=== PATIENT | female | born 1935 | race Caucasian/White ===

== ENCOUNTER → 2017-11-13 13:02 | Outpatient (CLI) | payer MEDICARE, BC ==
[2014-09-07 15:09] VITALS: BMI 31.9
--- NOTE | ~2017-11-13 | EC ---
PATIENT:MAEVE STOVER DATE OF SERVICE: 11/13/17 SEX: F MEDICAL RECORD: [id number] DATE OF : 37 [facility] AGE OF PATIENT: 82 ADMISSION DATE: 11/13/17 REFERRING PHYSICIAN: INTERPRETING PHYSICIAN: MUNIR TAMAYO MD ECHOCARDIOGRAM REPORT ECHO CHARGES CLINICAL DIAGNOSIS: ECHOCARDIOGRAPHIC MEASUREMENTS (adult normal given) AC root (d.<3.7cm) cm LV Septum d (<1.2 cm> cm Valve Excursion cm LV Septum (systole) cm Left Atria (s.<4.0cm> cm LVPW d(<1.2cm) cm RV (d.<2.3cm) cm LVPW (sytole) cm LV diastole(<5.6CM) cm MV E-F(>70mm/sec) cm LV systole cm LVOT Diameter cm MV exc.(>10mm) cm Est.ejection fraction (50-75%) % Pericardial Effusion DOPPLER: LVIT cm/sec A cm/sec E cm/sec LA cm/sec RVSP mmHg LVOT cm/sec AOP1/2T m/s Asc. Ao cm/sec RVOT cm/sec RA cm/sec PA cm/sec AV Gradient Peak mmHg AV Mean mmHg AV Area cm MV Gradient Peak mmHg MV Mean mmHg MV Area cm COMMENTS: Bean Weigher: Upper Stitcher: CORI DATE OF SERVICE: 11/13/2017 PROCEDURE: Transthoracic echocardiogram. FINDINGS: 1. Left ventricle has normal function, ejection fraction is 60%. 2. The right ventricle is normal size, normal structure, and normal function. 3. The left atrium is normal size and normal structure, and normal function. 4. The aortic valve is shown to have mild aortic regurgitation, but otherwise structurally normal. ECHOCARDIOGRAM REPORT [id number] MAEVE STOVER 5. The mitral valve is shown to have mild to moderate mitral regurgitation, appears to be posteriorly directed, mildly eccentric. 6. The tricuspid valve has mild tricuspid regurgitation, RVSP of 35-40 mmHg. 7. The right atrium is mildly dilated. 8. Pulmonic valve is normal. CONCLUSIONS: The patient has evidence of hypertensive heart disease, diastolic dysfunction with mild elevations of pulmonary pressures. TRANSINT:[id number] Voice Confirmation ID: [id number] DOCUMENT ID: [id number] 11/19/2017 Edited to correct date of service, dmm. MUNIR TAMAYO MD at 1001 CC: [id number] DICTATION DATE: 11/14/17 0754 AUTO MECHANIC APPRENTICE: 11/14/17 0955 DEP CLI 11/13/17 [id number] [place] [address]
[~2017-11-13 13:02] MED LIST: BAYER CHEWABLE81 MG PO; BYSTOLIC2.5 MG PO; BYSTOLIC5 MG PO; CELEBREX200 MG PO; CYCLOBENZAPRINE10 MG; CYMBALTA30 MG PO; HYDROCODON-ACE1 EAC7 PO; LEVOXYL100 MCG PO; LEXAPRO10 MG PO; LYRICA75 MG PO; METOPROLOL TART50 MG PO; NEXIUM40 MG PO; NORVASC5 MG PO; PLAVIX75 MG PO; PRILOSEC10 MG PO; TYLENOL ARTHRITIS PO; ULTRAM50 MG PO
== END | disposition home or self-care (01) ==
LOC: D.ECHO 13:02
DX: R07.9 Chest pain, unspecified (principal); R06.02 Shortness of breath; R00.2 Palpitations; I10 Essential (primary) hypertension; R09.89 Other specified symptoms and signs involving the circulatory and respiratory systems

== ENCOUNTER 2017-12-04 08:01 | Outpatient (CLI) | payer MEDICARE, BC ==
[~2017-12-04] VITALS: Ht 160 cm; Wt 81.8 kg
--- NOTE | ~2017-12-04 | OP ---
PATIENT NAME: MAEVE STOVER MEDICAL RECORD: [id number] :37 LOCATION:[facility] ADMISSION DATE: SURGEON: MUNIR TAMAYO MD DATE OF OPERATION: 12/04/2017 PROCEDURE: Left heart cath, LV gram, coronary angiogram, selective 4-vessel angiography. PROCEDURE IN DETAIL: The patient was brought to cardiac catheterization lab in stable condition. Both groins were sterilely prepped and draped. The patient had a 5-[place] sheath placed in the right common femoral artery using modified Seldinger technique. The patient then had diagnostic catheter utilized to selectively engage the left main coronary artery, the right coronary artery, the left ventricular cavity, the right subclavian artery, the right innominate artery, the right common carotid artery, the left common carotid artery, and the left subclavian vessel selectively for complete left heart catheterization and a 4-vessel angiography. FINDINGS: 1. Left main, mild plaquing. 2. The LAD is shown to be widely patent proximally. There is a large diagonal and the diagonal itself has a mid 50% stenosis. 3. The mid left anterior descending has a 50% stenosis. 4. The ramus intermediate branch is a very small vessel, less than 1.0 mm diameter and it is shown to have a 90% stenosis. 5. The circumflex is a nondominant vessel with a large branching first obtuse marginal branch with a 40% mid stenosis. 6. The right coronary artery is a large, dominant vessel with diffuse atherosclerotic changes throughout the vessel with a mid 50% stenosis. 7. The innominate artery is shown to be a large vessel and normal. 8. The right subclavian vessel is serpiginous with mild plaquing, but no hemodynamically significant stenosis. 9. The right vertebral artery is widely patent and antegrade flow, very serpiginous in its course. 10. The right common carotid artery is normal, very serpiginous in its course to the bifurcation of the external and internal carotid artery. 11. The right internal carotid artery makes a 360 degree loop. Throughout that loop, it appears that there is plaquing, but no severe stenosis into the cavernous portion of the right internal carotid artery. 12. The left common carotid artery is also very serpiginous in its course reflective of the loss of cervical height in the neck. 13. In the proximal left internal carotid artery, there is significant stenosis approximately 90%. 14. Left subclavian vessel has mild atherosclerotic plaquing and 35% stenosis proximally. The left vertebral artery has antegrade flow. Very small vessel. HEMODYNAMICS: Left ventricular ejection fraction is 65%, end-diastolic pressure was mildly elevated at 25 mmHg. There is no significant mitral regurgitation. There is no gradient across the aortic valve. IMPRESSION: 1. Moderate multivessel coronary artery disease with the most significant being in the ramus vessel that is very small. We will treat that medically. 2. Preserved left ventricular systolic function. 3. 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 OPERATIVE REPORT [id number] MAEVE STOVER RECOMMENDATION: Given that the stenosis in 90% range or greater, would recommend that she go forward with carotid endarterectomy. Would continue aggressive secondary risk factor modification and dual antiplatelet therapy. TRANSINT:[id number] Voice Confirmation ID: [id number] DOCUMENT ID: [id number] MUNIR TAMAYO MD at 1426 CC: [id number] DICTATION DATE: 12/04/17 1049 BUNDLE CLERK: 12/04/17 1152 DEP CLI 12/04/17 [facility] [address] [place] [address]
--- NOTE | ~2017-12-04 | HEMODYNAMI ---
PATIENT:MAEVE STOVER MEDICAL RECORD: [id number] : 37 LOCATION:[facility] ADMISSION DATE: 12/04/17 Generatedon:12/04/201710:46 Patient name: MAEVE STOVER Patient #: [id number] SSN: : 1935 Date of study: 12/04/2017 Page: Of Hemodynamic Procedure Report Patient Data Patient Demographics Procedure consent was obtained First Name: MAEVE Gender: Female Last Name: CK : 1935 [facility] Initial: HAL Age: 82 year(s) Patient #: [id number] Race: Unknown Additional ID: [id number] Contact details Address: [address] [place] [address] street State: [place] City: [place] Zip code: [address] Past Medical History Allergies Allergen Reaction Date Comments Reported Other allergy 12/04/2017 CRESTOR, SULFA, ZOCOR Admission Admission Data Admission Date: 12/04/2017 Admission Time: 8:01 Lab Results Lab Result Date: 12/04/2017 Lab Result Time: 0:00 Biochemistry Name Units Result Min Max BUN mg/dl 20 --(----)*- 7 18 Creatinine mg/dl 1.1 --(--*-)-- 0.6 1.3 CBC Name Units Result Min Max Hemoglobin g/dl 12.2 *-(----)-- 13.5 17.5 Procedure Procedure Types Cath Procedure Diagnostic Procedure [facility] w/Coronaries Sedation Charges Moderate Sedation up to 15 minutes Peripheral Cath Diagnostic Procedure Cath Peripheral Four Vessel Arteriogram Procedure Description Procedure Date Procedure Date: 12/04/2017 Procedure Start Time: 10:17 Procedure End Time: 10:45 Procedure Staff Name Function Bon Umaña MD Performing Physician Ishaan Dubose RN Nurse Yoselyn Corral RT Monitor Aroldo Tapia RT Scrub Procedure Data Cath Procedure Fluoroscopy Diagnostic fluoroscopy Total fluoroscopy Time: 5.8 time: 5.8 min min Diagnostic fluoroscopy Total fluoroscopy dose: 214 dose: 214 mGy mGy Contrast Material Contrast Material Type Amount (ml) Isovue 300 145 Entry Location Entry Primary Successful Side Size Upsize Upsize Entry Closure Succes sful Closure Location (Fr) 1 (Fr) 2 (Fr) Remarks Device Remarks Femoral Right 5 Fr Exoseal artery Estimated blood loss: 5 ml Diagnostic catheters Device Type Used For End Catheter Placement MULTIPACK JL 4.0 5Fr Procedure catheter MULTIPACK 3DRC 5Fr Procedure catheter DIAGNOSTIC AR MOD 5Fr Procedure Catheter ([id number]) MULTIPACK Pigtail 5 Fr Procedure catheter Procedure Complications No complications Procedure Medications Medication Administration Route Dosage Oxygen NC 2 l/min Lidocaine 2% added to field 20 Heparin Flush Bag added to field 2 bags (1000units/500ml NS) 0.9% NaCl I.V. 100 ml/hr Versed I.V. 1 mg Fentanyl I.V. 50 mcg Hemodynamics Rest HGB: 12.2 (g/dl) Heart Rate: 65 (bpm) Pressure Samples Time Site Value (mmHg) Purpose Heart Use Rate(bpm) 10:36 LV 150/-6,15 EDP 74 10:37 AO 136/76(97) Pullback 74 10:37 LV 134/17,19 Pullback 74 Gradients Valve Time Site 1 Site 2 Mean SEP/DFP Peak To Heart Use (mmHg) (sec/min) Peak Rate (mmHg) (bpm) Aortic 10:37 LV AO 0 19 0 74 134/17,19 136/76(97) Calculations Valve P-P Mean Valve Index Valve Source Name Gradient Area Flow (cm2) Aortic 0 0 0 0 Snapshots Pre Cath Intra NCS Post Cath Vital Signs Time Heart Resp SPO2 etCO2 NIBP (mmHg) Rhythm Pain Sedation Rate (ipm) (%) (mmHg) Status Level (bpm) 10:07:30 64 12 99 41.2 159/90(113) NSR 0 (11) 10(A) , No pain 10:12:00 68 15 99 17.9 145/84(114) NSR 0 (11) 10(A) , No pain 10:16:34 64 16 96 0 135/88(111) NSR 0 (11) 9(A) , No pain 10:20:52 66 16 96 0 139/88(108) NSR 0 (11) 9(A) , No pain 10:25:12 71 15 97 7.4 144/84(120) NSR 0 (11) 9(A) , No pain 10:29:33 75 15 97 37.4 143/80(113) NSR 0 (11) 9(A) , No pain 10:33:51 73 15 97 31.4 145/88(113) NSR 0 (11) 9(A) , No pain 10:38:13 75 15 98 34.4 144/82(106) NSR 0 (11) 10(A) , No pain 10:42:37 68 12 99 40.4 147/82(117) NSR 0 (11) 10(A) , No pain Medications Time Medication Route Dose Verified Delivered Reason Notes Effe ctiveness by by 10:06:20 Oxygen NC 2 Bon Buffie used for l/min Chasidy Dubose RN procedure 10:06:27 Lidocaine 2% added 20ml Bon Bon used for to vial Chasidy Umaña MD procedure field LEIVA 10:06:35 Heparin Flush added 2 Bon Bon for local Bag to bags Chasidy Umaña MD anesthetic (1000units/500ml field LEIVA NS) 10:06:46 0.9% NaCl I.V. 100 Bon Buffie Per ml/hr Chasidy Dubose RN physician 10:10:22 Versed I.V. 1 mg Bon Buffie for Chasidy Dubose RN sedation 10:10:32 Fentanyl I.V. 50 Bon Buffie for mcg Chasidy Dubose RN sedation Procedure Log Time Note 9:35:53 Ishaan Dubose RN sent for patient. Start room use. 9:47:01 Time tracking: Regular hours 9:47:04 Plan of Care:Hemodynamics will remain stable., Cardiac rhythm will remain stable., Comfort level will be maintained., Respiratory function will remain adequate., Patient/ family verbilizes understanding of procedure., Procedure tolerated without complication., Recovers from procedure without complications.. 9:49:21 Signed procedure consent form obtained from patient. 9:51:21 H&P Date Dictated: 11/28/2017 Within 30 days and on chart., H&P Addendum completed by physician on day of procedure. (MUST COMPLETE FOR ALL OUTPATIENTS). 9:51:53 Patient allergic to Other allergyCRESTOR, SULFA, ZOCOR 9:53:26 Lab Result : BUN 20 mg/dl 9:53:26 Lab Result : Creatinine 1.1 mg/dl 9:53:26 Lab Result : Hemoglobin 12.2 g/dl 9:56:49 Patient received from Pre/Post Procedure Room to CCL 3 Alert and oriented. Tansferred to table in Supine position. 9:56:50 Warm blankets applied, and gonzalez hugger turned on for patient comfort. 9:56:50 Correct patient and procedure confirmed by team. 9:56:52 Signed procedure consent form obtained from patient. 9:56:53 ECG and BP/O2 sat monitors applied to patient. 10:06:07 Vital chart was started 10:06:08 Baseline sample Acquired. 10:06:12 Rhythm: sinus rhythm 10:06:13 Full Disclosure recording started 10:06:14 Pre-procedure instructions explained to patient. 10:06:14 Pre-op teaching completed and patient verbalized understanding. 10:06:16 Family in patients room. 10:06:17 Patient NPO since Midnight. 10:06:19 Is the patient allergic to Iodine/contrast media? No. 10:06:20 Oxygen 2 l/min NC was administered by Ishaan Dubose RN; used for procedure; 10:06:21 Is patient on blood thinner?Yes 10:06:24 ACC The patient was administered the following blood thiners within the last 24 hours: ACCPlavix 10:06:26 Patient diabetic? No. 10:06:27 Lidocaine 2% 20ml vial added to field was administered by Bon Umaña MD; used for procedure; 10:06:28 Patient not . Patient is over age 55. 10:06:31 Previous problem with sedation/anesthesia? No ? 10:06:32 Snore? Yes 10:06:35 Heparin Flush Bag (1000units/500ml NS) 2 bags added to field was administered by Bon Umaña MD; for local anesthetic; 10:06:35 Sleep apnea? No 10:06:36 Deviated septum? No 10:06:37 Opens mouth fully? Yes 10:06:37 Sticks out tongue? Yes 10:06:40 Airway obstruction? No ? 10:06:44 Dentures? Yes IN TIGHT 10:06:46 0.9% NaCl 100 ml/hr I.V. was administered by Ishaan Dubose RN; Per physician; 10:06:48 Pre procedure: right dorsailis pedis pulse 2+ Normal; easily identifiable; not easily obliterated 10:07:06 IV patent on arrival in right forearm with 0.9% NaCl at [facility]. 10:07:08 Lab results completed and on chart. 10:07:12 Right groin area was prepped with chlora-prep and draped in sterile fashion 10:07: Alarms reviewed by R. N. 10:: Sharps counted by scrub and verified by R.N. 10::15 --------ALL STOP TIME OUT------ ::15 Final Timeout: patient, procedure, and site verified with staff and physician. All members of the team are in agreement. 10:07:17 Right groin site verified by team. 10:07:20 Physical assessment completed. ASA score P 2 - A patient with mild systemic disease as per Bon Umaña MD. 10:07:23 Sedation plan: IV Moderate Sedation Medication:Versed, Fentanyl 10:10:22 Versed 1 mg I.V. was administered by Ishaan Dubose RN; for sedation; 10:10:32 Fentanyl 50 mcg I.V. was administered by Ishaan Dubose RN; for sedation; 10:13:13 Use device set Femoral Dx 10:13:14 ACIST Syringe (42933) opened to sterile field. 10:13:15 Bag Decanter (2002S) opened to sterile field. 10:13:16 ACIST Hand Control (19810) opened to sterile field. 10:13:17 ACIST Manifold (09785) opened to sterile field. 10:13:19 Tegaderm 4 x 4 (1626W) opened to sterile field. 10:13:20 Medline Cath Pack ([id number]) opened to sterile field. 10:13:21 SHEATH 5FR Doon (IQZ104) opened to sterile field. 10:13:23 DIAGNOSTIC WIRE .035 260cm J wire (341634) opened to sterile field. 10:13:26 DIAGNOSTIC Multipack 5Fr catheter set ([id number]) opened to sterile field. 10:13:27 MICROPUNCTURE 4FR Cook (X95392) opened to sterile field. 10:17:12 Zero performed for pressure channel P1 10:17:18 Procedure started. 10:17:21 Local anesthetic to right femoral artery with Lidocaine 2% by Bon Umaña MD.INITIAL ACCESS ONLY 10:17:22 Access obtained with 4Fr micropunture. 10:17:30 A 5 Fr sheath was inserted into the Right Femoral artery 10:17:40 Zero performed for pressure channel P1 10:19:17 A MULTIPACK JL 4.0 5Fr catheter was advanced over the wire and used for Procedure. 10:20:51 LCA angiography performed. 10:22:13 Catheter exchanged over wire. 10:22:25 A MULTIPACK 3DRC 5Fr catheter was advanced over the wire and used for Procedure. 10:25:24 Right carotid angiography performed. 10:28:38 Left carotid angiography performed. 10:30:55 Catheter exchanged over wire. 10:31:58 A DIAGNOSTIC AR MOD 5Fr Catheter ([id number]) was advanced over the wire and used for Procedure. 10:33:39 RCA angiography performed. 10:34:22 Catheter exchanged over wire. 10:34:41 A MULTIPACK Pigtail 5 Fr catheter was advanced over the wire and used for Procedure. 10:34:58 Injector settings: Ml/sec: 12, Volume: 8, 10:35:01 LV gram done using LIRIANO 10:36:35 LV hemodynamics recorded. 10:37:08 EF : 65 % 10:37:10 Catheter removed. 10:37:14 EXOSEAL 5Fr (EX500) opened to sterile field. 10:37:33 Sheath removed intact; hemostasis achieved with Exoseal to the Right Femoral artery. 10:37:59 Procedure ended.(Physican Out) 10:38:08 Fluoroscopy time 05.80 minutes. 10:38:12 Fluoroscopy dose: 214 mGy 10:38:12 Flurop Dose total: 214 10:38:17 Contrast amount:Isovue 300 145ml. 10:38:20 Sharps counted by scrub and verified by R.N. 10:38:28 Post-op/insertion site Right Femoral artery dressed using a 4 x 4 and Tegaderm. 10:38:33 Post procedure: right dorsailis pedis pulse 2+ Normal; easily identifiable; not easily obliterated. 10:38:36 Post-procedure physical assessment completed. ASA score P 2 - A patient with mild systemic disease as per Bon Umaña MD. 10:38:41 Post procedure rhythm: unchanged. 10:38:44 Estimated blood loss: 5 ml 10:38:46 Post procedure instruction explained to patient.Patient verbalizes understanding. 10:38:47 Patient needs reinforcement of post procedure teaching. 10:44:14 Procedure type changed to Cath procedure, Diagnostic procedure, LHC, LHC w/Coronaries, Sedation Charges, Moderate Sedation up to 15 minutes, Peripheral Cath Diagnostic Procedure, Cath Peripheral, Four Vessel Arteriogram 10:45:08 Procedure and supply charges have been captured, reviewed, submitted and are correct. 10:45:11 Procedure Complication : No complications 10:45:13 Vital chart was stopped 10:45:13 See physician's report for complete and final results. 10:45:15 Report given to Pre/Post Procedure Room. 10:45:18 Patient transfered to Pre/Post Procedure Room with Bed. 10:45:20 Procedure ended. 10:45:20 Full Disclosure recording stopped 10:45:26 End room use (Document Last) Device Usage Item Name Manufacture Quantity Catalog Hospital Part Current Minimal Lot# / Number Charge Number Stock Stock Serial# Code ACIST Syringe Acist 1 29666 269550 486069 [id number] 20 (69547) Medical Systems Inc Bag Decanter Microtek 1 2002S 412974 99425 215418 5 (2002S) Medical Inc. ACIST Hand Acist 1 29123 172655 886259 716266 5 Control Medical (91573) Systems Inc ACIST Acist 1 90069 191957 605349 596287 5 Manifold Medical (24661) Systems Inc Tegaderm 4 x 3M 1 1626W 787890 313829 817947 5 4 (1626W) Medline Cath Cardinal 1 [id number] 467342 71327 075618 5 [facility] ([id number]) SHEATH 5FR Terumo 1 FDL098 534573 819078 279908 40 Doon (YKE238) DIAGNOSTIC St Varun 1 408988 366067 080029 006958 30 WIRE .035 260cm J wire (084577) DIAGNOSTIC Cardinal 1 [id number] 086396 11721 076555 30 Multipack 5Fr Health catheter set (FH5285) MICROPUNCTURE [employer] Medical 1 X06993 282302 909240 888825 5 4FR [employer] ([id number]) MULTIPACK JL Cardinal 1 202558 5 4.0 5Fr Health catheter MULTIPACK Cardinal 1 918002 5 3DRC 5Fr Health catheter DIAGNOSTIC AR Cardinal 1 [id number] 547678 869805 761414 15 MOD 5Fr Health Catheter (217133O) MULTIPACK Cardinal 1 441805 5 Pigtail 5 Fr Health catheter EXOSEAL 5Fr Cardinal 1 EX500 718676 023415 746087 10 (EX500) Health Signature Audit [place] Stage Time Signature Unsigned Intra-Procedure 12/04/2017 Yoselyn Corral 10:46:24 AM RT(R) Signatures Monitor : Yoselyn Corral Signature : RT Date : Time : [address] [address]
[~2017-12-04 08:01] MED LIST changes: -HYDROCODON-ACE1 EAC7 PO; -LEXAPRO10 MG PO; -LYRICA75 MG PO; -METOPROLOL TART50 MG PO; -NEXIUM40 MG PO; -NORVASC5 MG PO; -PLAVIX75 MG PO
[2017-12-04] MEDS ORDERED: METOPROLOL TART50 MG PO (08:15)
[2017-12-04] MEDS ORDERED: NEXIUM40 MG PO (08:16)
[2017-12-04] MEDS ORDERED: LEXAPRO10 MG PO (08:17)
[2017-12-04] MEDS ORDERED: LYRICA75 MG PO (08:17)
[2017-12-04 08:29] VITALS: BP 138/92; Ht 160 cm; Wt 81.8 kg
[2017-12-04 08:45] LABS: BASOPHILS 0.2 % (0-2); HEMATOCRIT 37.7 % (36.0-48.0); HEMOGLOBIN 12.2 g/dL (12-16); IMMATURE GRANULOCYTES 0.6 % (0-5); LYMPHOCYTES 39.3 % (15-50); MCH 30.1 pg (26.0-34.0); MCHC 32.4 g/dL (31.0-37.0); MCV 93.1 fL (80.0-100.0); MEAN PLATELET VOLUME 9.5 fL (7.4-10.4); MONOCYTES 9.2 % (2-11); NEUTROPHILS 49.7 % (40-80); PLATELET COUNT 247 10x3/uL (130-400); RBC 4.05 10x6/uL (4.00-5.40); RDW 14.6 % (11.5-14.5); WBC 4.9 10x3/uL (4.8-10.8)
[2017-12-04 08:57] LABS: ANION GAP 8.8 mmol/L (8-16); CALCIUM 8.9 mg/dL (8.5-10.1); CARBON DIOXIDE 29.1 mmol/L (21.0-32.0); CREATININE - SERUM 1.1 mg/dL (0.6-1.3); POTASSIUM - SERUM 3.9 mmol/L (3.5-5.1)
== END 2017-12-04 13:20 | disposition home or self-care (01) ==
LOC: D.CATH 08:01
PROVIDERS: Internal Medicine Cardiovascular Disease
DX: I25.10 Atherosclerotic heart disease of native coronary artery without angina pectoris (principal); I65.22 Occlusion and stenosis of left carotid artery; Z01.812 Encounter for preprocedural laboratory examination

== ENCOUNTER 2017-12-10 07:30 | Inpatient (IN) | payer MEDICARE, BC ==
[2017-12-09 10:22] LABS: HEMATOCRIT 36.7 % (36.0-48.0); HEMOGLOBIN 11.8 g/dL (12-16); MCH 30.2 pg (26.0-34.0); MCHC 32.2 g/dL (31.0-37.0); MCV 93.9 fL (80.0-100.0); MEAN PLATELET VOLUME 9.7 fL (7.4-10.4); RBC 3.91 10x6/uL (4.00-5.40); RDW 14.9 % (11.5-14.5); WBC 5.4 10x3/uL (4.8-10.8)
[2017-12-09 10:32] LABS: APTT 25.4 SECONDS (22.8-39.4); INR 0.93 (0.85-1.17)
[2017-12-09 10:39] LABS: ALBUMIN 3.2 g/dL (3.4-5.0); ANION GAP 9.4 mmol/L (8-16); BILIRUBIN - TOTAL 0.31 mg/dL (0.2-1.3); CALCIUM 8.7 mg/dL (8.5-10.1); POTASSIUM - SERUM 4.4 mmol/L (3.5-5.1); PROTEIN - SERUM 6.9 g/dL (6.4-8.2)
[2017-12-09 11:18] LABS: APPEARANCE CLEAR (CLEAR); BILIRUBIN NEGATIVE (NEGATIVE); COLOR YELLOW (YELLOW); GLUCOSE NEGATIVE (NEGATIVE); KETONE NEGATIVE (NEGATIVE); NITRITE NEGATIVE (NEGATIVE); PROTEIN NEGATIVE (NEGATIVE); UROBILINOGEN NORMAL (NORMAL)
[~2017-12-10] VITALS: Ht 157.5 cm; Wt 80.7 kg
--- NOTE | ~2017-12-10 | HP ---
PATIENT: MAEVE STOVER MEDICAL RECORD: [id number] ACCOUNT: [id number] LOCATION:[facility].CV03 : 36 ADMISSION DATE: 12/11/17 HISTORY AND PHYSICAL EXAMINATION MAEVE Duncan (82yo, F) ID# [id number]. Date/Time12/05/2017 02:76JPEXU41 1935[address] Dept.NPP_[facility] ClinicProviderROMA MARTINES MDInsuranceMed Primary: [place] ([place]) Insurance # : [id number] Referring Provider Name : YEYO BEY Employer Name : RETIRED Med Secondary: [place] ([place]PPLEMENT) Insurance # : [id number] Policy/Group # : [id number] Referring Provider Name : YEYO BEY Employer Name : RETIRED Prescription: ORX - Member is eligible. Chief Complaint Carotid stenosis eval for LCEA , had cerebral arteriogram with [facility] 12/04/17 Patient's Care Team Referring Provider (): YEYO BEY: [address] [place] [id number], , Rn Delivery: MUNIR TAMAYO MD Patient's Pharmacies [facility] [id number] (ERX): [address], [place] [address], , Vitals BP:118/74 sitting R arm 12/05/2017 03:12 pm 120/74 sitting L arm 12/05/2017 03:13 pmBP Cuff Size:adult 12/05/2017 03:12 pm adult 12/05/2017 03:13 pmHR:72, missed beat 12/05/2017 03:14 pmHt:5 ft 3 in 12/05/2017 03:14 pmWt:180 lbs 12/05/2017 03:14 pmNotes:was getting ekgs yearly at [facility], "had a spike in it, and had to see a epic specialist", saw Chasidy and had stress test, and then angiography. Had some dizziness prior to seeing Chasidy, has not had any falls. Can't lift either leg out of the bathtub which was a sudden change. 12/05/2017 03:17 pmBMI:31.9 12/05/2017 03:14 pmAllergies Reviewed Allergies CRESTORSULFA (SULFONAMIDE ANTIBIOTICS)ZOCORMedications Reviewed Medications Aspir- [facility] Healthcelecoxib 200 mg capsule TK 1 C PO BID07/23/17 filledsurescriptscyclobenzaprine 10 mg kutesl87/28/18 filledPRESCRIPTION SOLUTIONSescitalopram 10 mg ywoynx02/26/18 filledPRESCRIPTION SOLUTIONSesomeprazole magnesium 40 mg capsule,delayed sgwvodh11/21/18 filledPRESCRIPTION SOLUTIONSlevothyroxine 75 mcg tablet TK 1 T PO QD10/31/17 filledPRESCRIPTION SOLUTIONSlevothyroxine 88 mcg yitdxv48/08/17 filledPRESCRIPTION SOLUTIONSLyrica 75 mg capsule TK ONE C PO TID10/27/17 filledPRESCRIPTION SOLUTIONSmetoprolol tartrate 50 mg fujxzy78/12/18 filledPRESCRIPTION SOLUTIONStraMADol 50 mg ujlmdv10/16/17 filledPRESCRIPTION SOLUTIONSTylenol Arthritis Pain 650 mg tablet,extended release Take 2 tablet(s) every 8 hours by oral route.12/05/17 [facility] HealthProblems Reviewed Problems Carotid atherosclerosis - Onset: 12/05/2017 Family History Reviewed Family History HISTORY AND PHYSICAL [id number] MAEVE STOVER HAL Father- Congestive heart failureBrother- Cerebrovascular accidentMother- Congestive heart failureSocial History Reviewed Social History Cardiology Family history of heart disease?: Y Smoking Status: Never smoker High Cholesterol: Y High blood pressure: Y Overweight: Y Obese: Y Diabetes: N Alcohol intake: None Surgical History Reviewed Surgical History Hysterectomy/bladder repair R KNEE REPL DIGITAL CAMPAIGN SPECIALIST History (not configured) Past Medical History Reviewed Past Medical History Arrhythmia: Y GERD: Y Hyperlipidemia: Y Hypertension: Y Hypothyroidism: Y Documents for Discussion N/A Screening None recorded. HPI Cerebral Vascular Disease Reported by patient. Associated Symptoms: no headache; no nausea; no vomiting; no tinnitus; no difficulty speaking; no lethargy; no fever; no chills; no palpitations; no syncope; no loss of consciousness asymptomatic left internal carotid artery redundancy with plaque and a 90% stenosis at the site of a kinking about 1 cm above the bifurcation. The right internal carotid artery had a has a 360 turn. The patient is asymptomatic particularly denies any CVA or TIA symptoms. Significant three-vessel coronary disease but asymptomatic. ROS Additionally reports: as reviewed in the chart ROS as noted in the HPI Physical Exam Patient is an 82-year-old female. Constitutional: General Appearance well nourished and developed and healthy-appearing. Level of Distress NAD. Ambulation ambulating normally. Cardiovascular: Apical Impulse not displaced or no thrill. Heart Auscultation HISTORY AND PHYSICAL [id number] MAEVE STOVER normal s1 and s2; no murmurs, rubs, or gallops; and RRR. Arterial Pulses no abdominal aor ta bruits, femoral bruits, or popliteal bruits and 2+ bilateral, carotid 2+ bilateral, femoral 2+ bilateral, popliteal 2+ bilateral, and dorsalis pedis 2+ bilateral. Edema no edema or varicosities. Lungs: Repiratory Effort no dyspnea. Percussion no hyperr esonance or dullness or flatness. Auscultation no wheezing, rhonchi, or rales / crackles and breathing sounds normal, good air movement, and CTA except as noted. Abdomen: Bowl Sounds normal. Inspection and Palpation no tenderness, guarding, masses, or ranjan ound tenderness and soft and non-distended. Liver non-tender and no hepatomegaly. Spleen non-tender and no splenomegaly. Hernia none palpable. Musculoskeletal System: Gait And Stance normal gait and stance. Digits and Nails normal nails and no cyanosis. Neurologic: Cranial Nerves grossly intact. Reflexes DTRs 2+ bilaterally throughout. Sensation grossly intact. Lymph Nodes: Lymph Nodes no cervical LAD, supraclavicular LAD, axillary LAD, or inguinal LAD. Eyes: Lids and Conjunctivae no discharge or pallor and non-injected. Pupils PERRLA. Cornea grossly intact. EOM EOMI. Lens clear. Sclera non-icteric. Neck: Neck no masses, enlarged lymph nodes, or carotid bruits and supple and trachea midline. Thyroid no enlargement or nodules and non-tender. Skin: Inspection and Palpation no rash, lesions, ulcers, jaundice, or abnormal nevi; mild bruising right forearm. Assessment / Plan 1. Left carotid artery stenosis I65.22: Occlusion and stenosis of left carotid artery Patient Goals asymptomatic Patient Instructions preoperative instructions given Discussion Notes discussed risks benefits and alternatives including stroke and heart attack. They wish to proceed with left carotid endarterectomy. We may need to shorten the artery as well as patch it. ROMA MARTINES MD at 1417 CC: [id number] DICTATION DATE: 12/05/17 1430 PROJECT LEADER: DM 12/09/17 0947 ADM IN [id number] [place] [address]
--- NOTE | ~2017-12-10 | OP ---
PATIENT NAME: MAEVE STOVER MEDICAL RECORD: [id number] :37 LOCATION:D.CVI D.CV03 ADMISSION DATE:12/11/17 SURGEON: DELONTE MARTINES MD DATE OF OPERATION: 12/11/2017 SURGEON: Delonte Martines MD ASSISTANTS: 1. Sera Crouch MD 2. CHRISTINA Bull PROCEDURE PERFORMED: Left carotid endarterectomy with patch. PREOPERATIVE DIAGNOSIS: Left carotid stenosis. POSTOPERATIVE DIAGNOSIS: Left carotid stenosis. ANESTHESIA: General endotracheal anesthesia. ESTIMATED BLOOD LOSS: 20 cc. COMPLICATIONS: None. SPECIMENS: Plaque for gross only. CONDITION: Stable. DISPOSITION: CV ICU. OPERATIVE FINDINGS: Calcified plaque beginning in the proximal left internal carotid artery and extending about 2 cm distally to the point of discrete tortuosity and kink of the internal carotid artery. Endarterectomy was successful and the patch removed the redundancy, therefore the artery did not have to be shortened. EEG and cerebral oximetry were normal throughout the clamping. OPERATIVE INDICATION: An 82-year-old female with severe left internal carotid artery stenosis. PROCEDURE IN DETAIL: The patient was brought to the operating suite. General anesthesia was obtained. The patient was prepped and draped. Transverse incision was made. Subfascial flaps were created. The common carotid was dissected out proximally, taking care to avoid the nerve. The ansa was divided between clips and the hypoglossal nerve was identified and held out of harm's way. The artery was tortuous and internal was dissected up to about 3 cm beyond the point of tortuosity well behind the external carotid, which had 4 discrete branches at the bifurcation, all of which were encircled with loops. Heparin was given. After the heparin circulated, clamp was placed for 2 minutes. The EEG was normal. Arteriotomy begun and the common carotid artery taken out to the region of dense calcification into a relatively normal region of internal carotid artery while inferiorly retracting the normal portion of the internal carotid around the redundant portion. The endarterectomy was then begun in the common carotid artery with eversion endarterectomy of the external carotid and distally, the plaque feathered well. Thorough irrigation was undertaken. All bits of loose debris were removed. Backbleeding was brisk. The patch was OPERATIVE REPORT [id number] MAEVE STOVER sutured along the edges of the arteriotomy and prior to completing the anastomosis, backbleeding was allowed from all 3 major vessels. Then, thorough irrigation was undertaken. The anastomosis was completed. Flow was restored first to the external carotid and then to the internal carotid. The patch lay appropriately with no redundancy. Hemostasis was ensured. Protamine was given. A drain was placed through a separate stab wound. Hemostasis was ensured and the wound was closed with 1 suture in the fascia, both muscle layer and the skin. Dermabond was placed. Anesthesia was reversed. The patient was neurologically intact to CV ICU. TRANSINT:[id number] Voice Confirmation ID: [id number] DOCUMENT ID: [id number] DELONTE MARTINES MD at 1417 CC: [id number] DICTATION DATE: 12/11/17 1201 TOOL ENGINE LATHE SET UP OPERATOR: 12/11/17 1344 ADM IN [facility] [address] [place] [address]
[~2017-12-10 07:30] MED LIST changes: +LEXAPRO10 MG PO; +LYRICA75 MG PO; +METOPROLOL TART50 MG PO; +NEXIUM40 MG PO
[2017-12-11] VITALS (26 sets, daily range): BP systolic 106–151; BP diastolic 59–98; BMI 33.0; BMI 32.6
[2017-12-12] VITALS (24 sets, daily range): BP systolic 105–148; BP diastolic 61–92; Ht 157.5 cm; Wt 80.7 kg
[2017-12-12 06:26] LABS: BASOPHILS 0.1 % (0-2); EOSINOPHILS 0 % (0-7); HEMATOCRIT 29.4 % (36.0-48.0); HEMOGLOBIN 9.4 g/dL (12-16); IMMATURE GRANULOCYTES 0.3 % (0-5); LYMPHOCYTES 12.3 % (15-50); MCH 29.8 pg (26.0-34.0); MCV 93.3 fL (80.0-100.0); MEAN PLATELET VOLUME 9.8 fL (7.4-10.4); MONOCYTES 8.5 % (2-11); NEUTROPHILS 78.8 % (40-80); PLATELET COUNT 230 10x3/uL (130-400); RBC 3.15 10x6/uL (4.00-5.40); RDW 14.8 % (11.5-14.5); WBC 8.8 10x3/uL (4.8-10.8)
[2017-12-12 06:55] LABS: ALBUMIN 2.6 g/dL (3.4-5.0); ANION GAP 11.2 mmol/L (8-16); BILIRUBIN - TOTAL 0.4 mg/dL (0.2-1.3); CALCIUM 8.4 mg/dL (8.5-10.1); CARBON DIOXIDE 28.6 mmol/L (21.0-32.0); CREATININE - SERUM 0.9 mg/dL (0.6-1.3); POTASSIUM - SERUM 3.8 mmol/L (3.5-5.1); PROTEIN - SERUM 5.9 g/dL (6.4-8.2)
[2017-12-13] VITALS (21 sets, daily range): BP systolic 105–148; BP diastolic 50–88
[2017-12-13 05:31] LABS: BASOPHILS 0.1 % (0-2); EOSINOPHILS 0.4 % (0-7); HEMATOCRIT 32.6 % (36.0-48.0); HEMOGLOBIN 10.6 g/dL (12-16); IMMATURE GRANULOCYTES 0.3 % (0-5); LYMPHOCYTES 10.5 % (15-50); MCH 29.7 pg (26.0-34.0); MCHC 32.5 g/dL (31.0-37.0); MEAN PLATELET VOLUME 9.5 fL (7.4-10.4); MONOCYTES 8.7 % (2-11); PLATELET COUNT 220 10x3/uL (130-400); RBC 3.57 10x6/uL (4.00-5.40); RDW 14.2 % (11.5-14.5); WBC 9.8 10x3/uL (4.8-10.8)
[2017-12-13 05:38] LABS: MCV 91.3 fL (80.0-100.0)
[2017-12-13 05:51] LABS: ALBUMIN 2.9 g/dL (3.4-5.0); ALKALINE PHOSPHATASE 66 U/L (46-116); CALCIUM 8.7 mg/dL (8.5-10.1); CARBON DIOXIDE 31.1 mmol/L (21.0-32.0); CHLORIDE - SERUM 95 mmol/L (98-107); CREATININE - SERUM 0.7 mg/dL (0.6-1.3); GLUCOSE 125 mg/dL (74-106); PROTEIN - SERUM 6.9 g/dL (6.4-8.2); SODIUM 133 mmol/L (136-145); eGFR NON AFRICAN AMERICAN 85 mL/min (90-120)
[2017-12-13 05:53] LABS: ALT (SGPT) 14 U/L (10-68); CALC OSMOLALITY 264 mosm/kg (275-300); UREA NITROGEN 8 mg/dL (7-18)
[2017-12-13] MEDS ORDERED: PLAVIX75 MG PO (11:43)
[2017-12-13] MEDS ORDERED: NORVASC5 MG PO (11:43)
[2017-12-13] MEDS ORDERED: METOPROLOL TART50 MG PO (11:44)
[2017-12-13] MEDS ORDERED: HYDROCODON-ACE1 EAC7 PO ×2 (11:47→11:55)
== END 2017-12-13 16:36 | disposition home or self-care (01) | DRG 39 ==
LOC: D.SDCHOLD 07:30 → D.CVICU 12-11 05:15 → D.SDCHOLD 12-11 07:30 → D.CVICU 12-11 08:28 → D.SDCHOLD 12-11 13:22 → D.CVICU 12-11 13:22
PROVIDERS: Thoracic Surgery (Cardiothoracic Vascular Surgery)
PROC: 03UJ0JZ Supplement Left Common Carotid Artery with Synthetic Substitute, Open Approach (ICD-10-PCS; 2017-12-11)
PROC: 03CJ0ZZ Extirpation of Matter from Left Common Carotid Artery, Open Approach (ICD-10-PCS; principal; 2017-12-11 07:30)
DX: I65.22 Occlusion and stenosis of left carotid artery (principal); I10 Essential (primary) hypertension; E78.5 Hyperlipidemia, unspecified

== ENCOUNTER 2018-03-27 07:39 | Inpatient (IN) | payer MEDICARE, BC ==
[~2018-03-27] VITALS: Ht 157.5 cm; Wt 86.4 kg
--- NOTE | ~2018-03-27 | HP ---
PATIENT: MAEVE LOMAS MEDICAL RECORD: [id number] ACCOUNT: [id number] LOCATION:[facility] D.2110 : 36 ADMISSION DATE: 03/28/18 HISTORY AND PHYSICAL EXAMINATION DATE OF ADMISSION: 03/27/2018 CHIEF COMPLAINT: Syncope. HISTORY OF PRESENT ILLNESS: Ms. Lomas is an 82-year-old female who states she awakened at approximately 6:30 this a.m. Upon sitting up on the side of bed, attempting to go the restroom, the next thing she knew she had fallen. She had no syncope, but presented to the Emergency Room for evaluation. PAST MEDICAL HISTORY: The patient's past history is significant in that she has had hypertension. She has had DJD of the knee. She has had hypothyroidism. She has had fibromyalgia, history of anemia, rheumatoid arthritis, history of depression in the past. She has had hysterectomy, carotid endarterectomy on the left in November 2017. She has had right hip replacement. FAMILY HISTORY: Brother had CVA. Father had CHF. ALLERGIES: SULFA, ZOCOR, CRESTOR. MEDICATIONS: Include aspirin 81 mg once a day, Celebrex 200 mg p.o. b.i.d., Plavix 75 mg once a day. She also takes Flexeril 10 mg p.o. at bedtime, Lexapro 10 mg once a day, Nexium 40 mg daily, hydrocodone 5/325 one every 6 hours p.r.n. severe pain, levothyroxine 75 mcg once a day, Lyrica 50 mg t.i.d., metoprolol 25 mg half tablet b.i.d., tramadol 50 mg every six hours p.r.n. pain, Tylenol Arthritis 650 one every 4 hours p.r.n. severe pain. SOCIAL HISTORY: The patient is . She is the mother of 2. She is retired from [email or web address]. HABITS: She denies any ethanol, tobacco use or abuse. REVIEW OF SYSTEMS: CONSTITUTIONAL: She denies any headache, seizure, or syncope. She denies change in visual or auditory acuity. PULMONARY: She denies any shortness of breath, cough, congestion, history of bronchitis. CARDIOVASCULAR: She has had no chest pain, palpitation, PND, orthopnea. GASTROINTESTINAL: No chronic nausea, vomiting, melena, or hematochezia. GENITOURINARY: No urgency, frequency, or dysuria. PHYSICAL EXAMINATION: VITAL SIGNS: Initially, her temperature was 98.1, her pulse was 44, her respirations were 16, blood pressure was 148/79, her pulse was 98. GENERAL: She is alert. She is oriented times 3. HEENT: Her head is normocephalic. No lesions. Ears; TMs are clear. Eyes; pupils are equal, round, and reactive to light. Her extraocular movements are intact. Her nasal cavity, oral cavity, and oropharynx are clear. NECK: Supple. There is no adenopathy. HEART: Somewhat bradycardic. LUNGS: Clear. HISTORY AND PHYSICAL [id number] CKCYRUS GANDHICY HAL ABDOMEN: Soft. The bowel sounds are positive. DIAGNOSTIC DATA: The patient did have an EKG showing sinus rhythm with some PACs present. She had a chest x-ray showing no cardiomegaly and no active infiltrates. ASSESSMENT: 1. Status post fall, near syncope, bradycardia, history of palpitations. 2. History of hypothyroidism, fibromyalgia, DJD of the knees, depression. PLAN: The patient will be admitted for telemetry monitoring. Cardiology consultation will be obtained. She will have an echocardiogram as well as carotid Dopplers. We will stop her metoprolol. Continue to evaluate. TRANSINT:[id number] Voice Confirmation ID: [id number] DOCUMENT ID: [id number] YEYO BEY MD at 1827 CC: [id number] DICTATION DATE: 03/27/181836 CREWMAN MAIN BATTLE TANK: 03/27/181917 DIS IN 03/29/18 [facility] [address] [id number]
--- NOTE | ~2018-03-27 | EC ---
PATIENT:MAEVE STOVER DATE OF SERVICE: 03/27/18 SEX: F MEDICAL RECORD: [id number] DATE OF : 37 LOCATION:D.M2 D.211 AGE OF PATIENT: 82 ADMISSION DATE: 03/28/18 REFERRING PHYSICIAN: INTERPRETING PHYSICIAN: MUNIR TAMAYO MD ECHOCARDIOGRAM REPORT ECHO CHARGES 4 ECHO COMPLETE Date: 03/27 CLINICAL DIAGNOSIS: SYNCOPE ECHOCARDIOGRAPHIC MEASUREMENTS (adult normal given) AC root (d.<3.7cm) 2.9 cm LV Septum d (<1.2 cm> 1.5 cm Valve Excursion 1.1 cm LV Septum (systole) 1.7 cm Left Atria (s.<4.0cm> 3.9 cm LVPW d(<1.2cm) 1.53 cm RV (d.<2.3cm) 2.7 cm LVPW (sytole) 1.9 cm LV diastole(<5.6CM) 4.8 cm MV E-F(>70mm/sec) cm LV systole 2.8 cm LVOT Diameter 1.6 cm MV exc.(>10mm) 1.4 cm Est.ejection fraction (50-75%) % DOPPLER: LVIT cm/sec A 87.0 cm/sec E 61.0 cm/sec LA cm/sec RVSP 36 mmHg LVOT 95 cm/sec AOP1/2T m/s Asc. Ao 147 cm/sec RVOT 61 cm/sec RA cm/sec PA 109 cm/sec AV Gradient Peak 8.69 mmHg AV Mean 5.64 mmHg AV Area 1.3 cm MV Gradient Peak 5.00 mmHg MV Mean 1.83 mmHg MV Area cm COMMENTS: Welder Fabricator: Nelida GERONIMO Organizational Development Director: Jone Tamayo TAPE# PACS Pericardial Effusion N DATE OF SERVICE: PROCEDURE: Transthoracic echocardiogram. FINDINGS: 1. Left ventricle has left ventricular hypertrophy. Inflow characteristics consistent with diastolic dysfunction. She has hyperdynamic left ventricular function with ejection fraction of 70%. 2. The left atrium is normal size. 3. The aortic valve is grossly normal. ECHOCARDIOGRAM REPORT [id number] MAEVE STOVER 4. The mitral valve has trace to mild mitral regurgitation. 5. The tricuspid valve has mild tricuspid regurgitation. RVSP at 36 mmHg. 6. The pericardium is normal. 7. The right ventricle has right ventricular hypertrophy with mild dilatation. 8. The right atrium is mildly dilated. 9. The aortic valve, although sclerotic, has normal function, has trace to mild aortic insufficiency. 10. Pulmonic valve is normal. 11. There is no pericardial effusion. CONCLUSIONS: The patient has evidence of mild hypertensive heart disease, otherwise normal echocardiogram for the patient's stated age. TRANSINT:[id number] Voice Confirmation ID: [id number] DOCUMENT ID: [id number] MUNIR TAMAYO MD at 1127 CC: [id number] DICTATION DATE: 03/28/18 1126 LOOM REPAIRER: 03/28/18 1206 DIS IN 03/29/18 [id number] [place] [address]
[~2018-03-27 07:39] MED LIST changes: +HYDROCODON-ACE1 EAC7 PO; +NORVASC5 MG PO; +PLAVIX75 MG PO
[2018-03-27 08:16] LABS: BASOPHILS 0.4 % (0-2); EOSINOPHILS 2.5 % (0-7); HEMATOCRIT 36.3 % (36.0-48.0); HEMOGLOBIN 11.4 g/dL (12-16); IMMATURE GRANULOCYTES 0.6 % (0-5); LYMPHOCYTES 32.3 % (15-50); MCH 29.7 pg (26.0-34.0); MCHC 31.4 g/dL (31.0-37.0); MCV 94.5 fL (80.0-100.0); MEAN PLATELET VOLUME 9.8 fL (7.4-10.4); NEUTROPHILS 52.2 % (40-80); PLATELET COUNT 258 10x3/uL (130-400); RBC 3.84 10x6/uL (4.00-5.40); RDW 14.1 % (11.5-14.5); WBC 5.3 10x3/uL (4.8-10.8)
[2018-03-27 08:30] VITALS: BP 150/103
[2018-03-27 08:38] LABS: ANION GAP 8.8 mmol/L (8-16); BILIRUBIN - TOTAL 0.21 mg/dL (0.2-1.3); CALCIUM 9.2 mg/dL (8.5-10.1); CARBON DIOXIDE 30.6 mmol/L (21.0-32.0); CREATININE - SERUM 0.9 mg/dL (0.6-1.3); POTASSIUM - SERUM 4.4 mmol/L (3.5-5.1); PROTEIN - SERUM 6.9 g/dL (6.4-8.2)
[2018-03-27 12:09] VITALS: BP 155/82; Ht 157.5 cm; Wt 86.4 kg
[2018-03-27 12:15] VITALS: BP 155/82
[2018-03-27 16:12] VITALS: BP 144/80
[2018-03-27 18:13] LABS: APPEARANCE CLEAR (CLEAR); COLOR YELLOW (YELLOW)
[2018-03-27 18:14] LABS: BACTERIA FEW /hpf (NONE SEEN); BILIRUBIN NEGATIVE (NEGATIVE); EPITHELIAL CELLS 0-5 /hpf (0-5); GLUCOSE NEGATIVE (NEGATIVE); KETONE NEGATIVE (NEGATIVE); NITRITE NEGATIVE (NEGATIVE); PROTEIN NEGATIVE (NEGATIVE); RED CELLS - URINE OCC /hpf (0-5); UROBILINOGEN NORMAL (NORMAL); WHITE CELLS - URINE 0-5 /hpf (0-5); YEAST >1+ /hpf (NONE SEEN)
[2018-03-27 21:39] VITALS: BP 135/67
[2018-03-28 01:29] VITALS: BP 118/67
[2018-03-28 04:30] VITALS: BP 144/72
[2018-03-28 04:51] LABS: BASOPHILS 0.6 % (0-2); EOSINOPHILS 2.6 % (0-7); HEMATOCRIT 33.6 % (36.0-48.0); HEMOGLOBIN 10.6 g/dL (12-16); IMMATURE GRANULOCYTES 0.4 % (0-5); LYMPHOCYTES 30.7 % (15-50); MCH 29.5 pg (26.0-34.0); MCHC 31.5 g/dL (31.0-37.0); MCV 93.6 fL (80.0-100.0); MEAN PLATELET VOLUME 9.8 fL (7.4-10.4); MONOCYTES 11.4 % (2-11); NEUTROPHILS 54.3 % (40-80); PLATELET COUNT 232 10x3/uL (130-400); RBC 3.59 10x6/uL (4.00-5.40); RDW 14.1 % (11.5-14.5); WBC 5.1 10x3/uL (4.8-10.8)
[2018-03-28 05:22] LABS: CALC OSMOLALITY 282 mosm/kg (275-300); CALCIUM 8.7 mg/dL (8.5-10.1); CARBON DIOXIDE 29.1 mmol/L (21.0-32.0); CHLORIDE - SERUM 107 mmol/L (98-107); CREATININE - SERUM 0.7 mg/dL (0.6-1.3); GLUCOSE 83 mg/dL (74-106); SODIUM 142 mmol/L (136-145); THYROID STIMULATING HORMONE 6.75 uIU/mL (0.36-3.74); UREA NITROGEN 14 mg/dL (7-18); eGFR NON AFRICAN AMERICAN 85 mL/min (90-120)
[2018-03-28 08:03] VITALS: BP 163/74
[2018-03-28 11:55] VITALS: BP 161/88
[2018-03-28 15:39] VITALS: BP 180/82
[2018-03-28 20:31] VITALS: BP 130/70
[2018-03-29 01:10] VITALS: BP 152/79
[2018-03-29 04:00] VITALS: BP 169/85
[2018-03-29 04:45] LABS: BASOPHILS 0.7 % (0-2); EOSINOPHILS 2.3 % (0-7); HEMATOCRIT 33.7 % (36.0-48.0); HEMOGLOBIN 10.6 g/dL (12-16); IMMATURE GRANULOCYTES 0.4 % (0-5); LYMPHOCYTES 37.4 % (15-50); MCH 29.5 pg (26.0-34.0); MCHC 31.5 g/dL (31.0-37.0); MCV 93.9 fL (80.0-100.0); MONOCYTES 11.8 % (2-11); NEUTROPHILS 47.4 % (40-80); PLATELET COUNT 258 10x3/uL (130-400); RBC 3.59 10x6/uL (4.00-5.40); WBC 5.7 10x3/uL (4.8-10.8)
[2018-03-29 06:58] LABS: ALBUMIN 2.8 g/dL (3.4-5.0); ALKALINE PHOSPHATASE 80 U/L (46-116); ALT (SGPT) 13 U/L (10-68); CALC OSMOLALITY 282 mosm/kg (275-300); CALCIUM 8.4 mg/dL (8.5-10.1); CARBON DIOXIDE 27.2 mmol/L (21.0-32.0); CHLORIDE - SERUM 109 mmol/L (98-107); CREATININE - SERUM 0.6 mg/dL (0.6-1.3); GLUCOSE 79 mg/dL (74-106); POTASSIUM - SERUM 4.4 mmol/L (3.5-5.1); PROTEIN - SERUM 5.9 g/dL (6.4-8.2); SODIUM 143 mmol/L (136-145); eGFR NON AFRICAN AMERICAN > 90 mL/min (90-120)
[2018-03-29 07:03] LABS: UREA NITROGEN 10 mg/dL (7-18)
[2018-03-29 08:05] VITALS: BP 143/71
[2018-03-29] MEDS ORDERED: COREG 3.1253.125 MG PO (09:39)
[2018-03-29] MEDS ORDERED: PROTONIX40 MG PO (09:40)
[2018-03-29 11:41] VITALS: BP 146/68
== END 2018-03-29 13:51 | disposition home health service (06) | DRG 310 ==
LOC: D.ER 07:39 → OBSVTIME 09:09 → D.M2 09:09
PROVIDERS: Emergency Medicine; Family Medicine; Internal Medicine Cardiovascular Disease
DX: I44.1 Atrioventricular block, second degree (principal); F32.9 Major depressive disorder, single episode, unspecified; I10 Essential (primary) hypertension; E78.5 Hyperlipidemia, unspecified; E03.9 Hypothyroidism, unspecified; M17.9 Osteoarthritis of knee, unspecified; M79.7 Fibromyalgia; Z86.73 Personal history of transient ischemic attack (TIA), and cerebral infarction without residual deficits

== ENCOUNTER 2018-04-09 09:11 | Emergency (ER) | payer MEDICARE, BC ==
[~2018-04-09] VITALS: Ht 157.5 cm; Wt 81.8 kg
--- NOTE | ~2018-04-09 | MORECARE ---
CASE MANAGEMENT DISCHARGE SUMMARY PATIENT: MAEVE STOVER HAL UNIT: [id number] ADM DATE: AGE: 82 : 36 SEX: F ROOM/BED: AUTHOR: CASE, RESIDENTIAL MONITOR PHYSICIAN: REFERRING PHYSICIAN: JORGE BHAT MD DATE OF SERVICE: 04/09/18 Discharge Plan Patient Name: MAEVE STOVER Facility: [facility]:[place]am : 1935 Planned Disposition: Assisted Living Anticipated Discharge Date: Discharge Date: Expected LOS: 0 Initial Reviewer: [email or web address] Initial Review Date: 04/09/2018 Generated: 04/09/18 11:54 am Comments DCP- Discharge Planning Updated by [email or web address]: Megan Ireland on 04/09/18 9:[address] Case management will follow and assist as needed with discharge planning / needs. Patient Name: MAEVE STOVER Page [id number] All edits/amendments must be made on the electronic document DICTATION DATE: 04/09/18 1054 TUBE COATER: 04/09/18 1054 RPT#: [id number] DC DATE: STATUS: REG [facility] [address] [place] [address] END OF REPORT
[~2018-04-09 09:11] MED LIST changes: +COREG 3.1253.125 MG PO; +PROTONIX40 MG PO
[2018-04-09 09:14] VITALS: Ht 157.5 cm; Wt 81.8 kg
[2018-04-09 09:39] LABS: BASOPHILS 0.3 % (0-2); EOSINOPHILS 0.3 % (0-7); HEMATOCRIT 36.7 % (36.0-48.0); IMMATURE GRANULOCYTES 0.1 % (0-5); LYMPHOCYTES 13.5 % (15-50); MCH 29.9 pg (26.0-34.0); MCHC 32.7 g/dL (31.0-37.0); MCV 91.3 fL (80.0-100.0); MONOCYTES 8.2 % (2-11); NEUTROPHILS 77.6 % (40-80); PLATELET COUNT 297 10x3/uL (130-400); RBC 4.02 10x6/uL (4.00-5.40); RDW 13.7 % (11.5-14.5); WBC 7.1 10x3/uL (4.8-10.8)
[2018-04-09 09:57] LABS: ALBUMIN 3.4 g/dL (3.4-5.0); ANION GAP 9.4 mmol/L (8-16); BILIRUBIN - TOTAL 0.36 mg/dL (0.2-1.3); CALCIUM 9.3 mg/dL (8.5-10.1); CARBON DIOXIDE 28.4 mmol/L (21.0-32.0); CREATININE - SERUM 0.9 mg/dL (0.6-1.3); POTASSIUM - SERUM 3.8 mmol/L (3.5-5.1); PROTEIN - SERUM 7.4 g/dL (6.4-8.2)
[2018-04-09 10:05] LABS: THYROID STIMULATING HORMONE 14.42 uIU/mL (0.36-3.74)
[2018-04-09] MEDS ORDERED: SYNTHROID150 MCG PO (10:24)
[2018-04-09 10:48] LABS: APPEARANCE CLEAR (CLEAR); BILIRUBIN NEGATIVE (NEGATIVE); COLOR YELLOW (YELLOW); GLUCOSE NEGATIVE (NEGATIVE); KETONE SMALL mg/dL (NEGATIVE); NITRITE NEGATIVE (NEGATIVE); PROTEIN TRACE mg/dL (NEGATIVE); UROBILINOGEN NORMAL (NORMAL); WHITE CELLS - URINE 0-5 /hpf (0-5)
[2018-04-09 10:49] LABS: BACTERIA MODERATE /hpf (NONE SEEN); EPITHELIAL CELLS 0-5 /hpf (0-5); HYALINE CAST RARE /lpf (NONE SEEN); MUCUS <1+ /lpf (NONE SEEN); RED CELLS - URINE 0-5 /hpf (0-5); YEAST <1+ /hpf (NONE SEEN)
[2018-04-09] MEDS ORDERED: MACROBID100 MG PO (10:51)
[2018-04-09 11:25] VITALS: BP 180/89
== END 2018-04-09 11:27 | disposition home or self-care (01) ==
LOC: D.ER 09:11
PROVIDERS: Emergency Medicine
DX: E03.9 Hypothyroidism, unspecified (principal); N30.90 Cystitis, unspecified without hematuria; R35.0 Frequency of micturition; I10 Essential (primary) hypertension; K21.9 Gastro-esophageal reflux disease without esophagitis

== ENCOUNTER 2019-01-12 11:42 | Emergency (ER) | payer MEDICARE, BC ==
[~2019-01-12 11:42] MED LIST changes: +MACROBID100 MG PO; +SYNTHROID150 MCG PO
[2019-01-12 11:44] VITALS: BP 173/90; BMI 33.5
== END 2019-01-12 13:59 | disposition home or self-care (01) ==
LOC: D.ER 11:42
DX: S51.011A Laceration without foreign body of right elbow, initial encounter (principal); W18.31XA Fall on same level due to stepping on an object, initial encounter; Y93.89 Activity, other specified; Y92.019 Unspecified place in single-family (private) house as the place of occurrence of the external cause; Z79.01 Long term (current) use of anticoagulants

== ENCOUNTER → 2019-09-16 20:51 | Outpatient (CLI) | payer MEDICARE, BC | END | disposition home or self-care (01) | LOC: D.LABREF 20:51 | PROVIDERS: ATTEND Urology | DX: N39.0 Urinary tract infection, site not specified (principal) ==

== ENCOUNTER → 2019-10-08 17:36 | Outpatient (CLI) | payer MEDICARE, BC | END | disposition home or self-care (01) | LOC: D.LABREF 17:36 | PROVIDERS: ATTEND Urology | DX: N39.0 Urinary tract infection, site not specified (principal) ==

== ENCOUNTER → 2019-11-10 17:05 | Outpatient (CLI) | payer MEDICARE, BC | END | disposition home or self-care (01) | LOC: D.LABREF 17:05 | PROVIDERS: ATTEND Urology | DX: N39.0 Urinary tract infection, site not specified (principal) ==